=== PATIENT | female | born 1995 | race Caucasian/White ===

== ENCOUNTER 2025-05-13 08:50 | Day surgery (SDC) | payer MEDICAID ==
[2025-05-11 11:38] LABS: Hematocrit 43.2 % (36.0-46.0); Hemoglobin 14.3 g/dL (12.2-16.2); Mean Corpuscular Hemoglobin 28.6 pg (28.0-32.0); Mean Corpuscular Volume 86.3 fL (80.0-100.0); Nucleated Red Blood Cells % 0.1 %
[2025-05-11 11:47] LABS: INR 1.11 (0.9-1.15); Partial Thromboplastin Time 27.4 SEC (24.5-34.5); Prothrombin Time 11.6 sec (9.3-11.8)
[2025-05-11 11:59] LABS: Alanine Aminotransferase 18 U/L (7-40); Alkaline Phosphatase 89 U/L (46-116); Anion Gap 6 (5-15); BUN/Creatinine Ratio 13.8 (10.0-20.0); Bilirubin, Total 0.6 mg/dL (0.2-1.0); Blood Urea Nitrogen 13 mg/dL (9-23); Calcium 9.9 mg/dL (8.7-10.4); Carbon Dioxide 29 mmol/L (20-31); Chloride 104 mmol/L (98-107); Glucose 76 mg/dL (74-106); Potassium 4.7 mmol/L (3.5-5.1); Sodium 139 mmol/L (136-145); Total Protein 7.9 g/dL (5.7-8.2)
[2025-05-11 12:01] LABS: Albumin 4.9 g/dL (3.2-4.8)
[~2025-05-13] VITALS: Ht 175.3 cm; Wt 81.6 kg
[~2025-05-13 08:50] MED LIST: EVOL140I2 SC; TEST200I32 IJ
[2025-05-13 10:01] VITALS: PULSE 86; RESP 16; O2SAT 100
[2025-05-13] MEDS: MIDAZOLAM HCL 2MG/2ML 2ml VIAL (1mg/ml) ONE (10:04)
[2025-05-13] MEDS: fentaNYL CITRATE 100 MCG/2 ML VL ONE (10:04)
--- NOTE | 2025-05-13 10:15 | DVHNC2 ---
Procedure - DATE: MAY 13, 2025 PROCEDURE PERFORMED BY: VIC CABALLERO MD REFERRING PROVIDER: JEISON DANIELLE MD PROCEDURE PERFORMED: 1. ESOPHAGOGASTRODUODENOSCOPY WITH MODERATE SEDATION 2. ESOPHAGOGASTRODUODENOSCOPY WITH BIOPSY PREPROCEDURE DIAGNOSIS: 1. LEFT UPPER QUADRANT ABDOMINAL PAIN POSTPROCEDURE DIAGNOSIS: 1. MILD GASTRITIS 2. MILD EROSIVE ESOPHAGITIS INDICATIONS FOR PROCEDURE: THE PATIENT IS A 29-YEAR-OLD FEMALE WITH LEFT UPPER QUADRANT ABDOMINAL PAIN FOR ONE YEAR MEDICATIONS USED: 5 MG OF VERSED IV AND 100 MCG OF FENTANYL IV DETAILS OF THE PROCEDURE: Informed consent was obtained after risks benefits and alternatives were discussed at length with the patient. The patient gave consent to the procedure as well as a medication used for sedation. The patient was placed in left lateral decubitus position. An Olympus endoscope was inserted into the oropharynx and advanced into the esophagus, then into the stomach, then into the duodenal bulb and duodenum. The duodenal bulb and duodenum showed no abnormalities. Biopsies were taken we will be sent for pathology. The scope was then withdrawn. The stomach showed mild gastritis with patchy erythema in the body and antrum. Several biopsies were taken. Retroflexion showed no abnormalities. The scope was then withdrawn. Esophagus showed mild erosive esophagitis and the Z-line was at 38 cm. The scope was then withdrawn and the procedure completed the patient tolerated procedure well. IMPRESSION: 1. Mild gastritis 2. Mild erosive gastritis No significant findings on today's endoscopy to explain the patient's symptoms. Consider musculoskeletal causes, IBS, versus other. RECOMMENDATIONS: 1. FOLLOW UP IN GI CLINIC FOR PROCEDURE AND PATHOLOGY RESULTS 2. CONSIDER FURTHER WORKUP WITH CT SCAN, MUSCULOSKELETAL ETIOLOGY, IBS VERSUS OTHER 3. FOLLOW UP WITH PRIMARY CARE PHYSICIAN 4. CONSIDER NON ULCER DYSPEPSIA 5. PATIENT SHOULD BE ON A PROTON PUMP INHIBITOR DAILY AND/OR H2 MARION I WOULD LIKE TO THANK DR. DANIELLE FOR THIS REFERRAL VIC CABALLERO MD May 13, 2025 10:15
[2025-05-13 10:16] VITALS: PULSE 60; RESP 16; TEMP 97.7; O2SAT 94
[2025-05-13 11:50] VITALS: BP 107/66; PULSE 68; RESP 17; O2SAT 98
== END 2025-05-13 11:57 | disposition home or self-care (01) ==
LOC: GYNSUR 08:50
PROVIDERS: ATTEND Specialist
DX: R10.12 Left upper quadrant pain (principal); K29.50 Unspecified chronic gastritis without bleeding; K20.80 Other esophagitis without bleeding; E78.00 Pure hypercholesterolemia, unspecified; Z87.11 Personal history of peptic ulcer disease; Z83.3 Family history of diabetes mellitus; Z79.899 Other long term (current) drug therapy
CPT/HCPCS: 36415; 43239; 80053; 81025; 85025; 85610; 85730; 88305; 88313; 88342; A4649; J2250; J3010